=== PATIENT | male | born 1995 | race Caucasian/White ===

== ENCOUNTER 2017-07-19 22:18 | Emergency (ER) | payer OTHER ==
[2017-07-20] MEDS: IBUPROFEN 600 MG TAB PO (01:44)
[2017-07-20] MEDS: NEOMYC/POLYMYX/BACIT 0.9 GM OINT TOP (01:49)
== END 2017-07-20 02:30 | disposition home or self-care (01) ==
LOC: FTE 22:18
DX: S30.811A Abrasion of abdominal wall, initial encounter (principal); F17.210 Nicotine dependence, cigarettes, uncomplicated; T24.112A Burn of first degree of left thigh, initial encounter; V49.40XA Driver injured in collision with unspecified motor vehicles in traffic accident, initial encounter; X58.XXXA Exposure to other specified factors, initial encounter; Y92.9 Unspecified place or not applicable
CPT/HCPCS: 99283